=== PATIENT | male | born 1965 | race Hispanic/Latino ===

== ENCOUNTER → 2024-09-20 | Outpatient (CLI) | payer BC ==
--- NOTE | 2024-09-20 13:20 | NUR ---
MBSS COMPLETED (OUTPATIENT). Deep non-transient penetration before the swallow with thin liquids via straw sip with throat clear response/ transient penetration during the swallow with continuos sips of thin liquids. Recommend regular solids, thin liquids (NO STRAWS), and pills whole with liquids as tolerated. Compensatory strategies: 1. sit upright during oral intake 2. no straws DIAGNOSTIC FINDINGS: Pt presented with mild pharyngeal dysphagia characterized by decreased tongue base retraction; occasional decreased pharyngeal response trigger; decreased hyo-laryngeal elevation/excursion; evidenced by occasional premature spillage to valleculae with spillover to pyriform sinuses; residue on base of tongue, valleculae, pyriform sinuses and occasionally on posterior pharyngeal wall cleared with extra dry swallows; resulting in transient penetrations during the swallow with thin liquids via continuos sips; deep non-transient penetration before the swallow with thin liquids via straw sips with throat clear response. Pt also observed with throat clears throughout exam not indicating aspirations or penetrations. No aspirations observed. [employer] reviewed results and recommendations with patient and . PRODUCT TESTER [employer] educated patient on risks and consequences of aspiration. Speech therapy recommended to address mild pharyngeal dysphagia. All questions answered. Addendum: 09/20/[address] MATHEW CORNELIUS Amended: Links added.
--- NOTE | 2024-09-20 16:18 | HMCIMG ---
MODIFIED BARIUM SWALLOW W CINE INDICATION: DYSPHAGIA, OROPHANGEAL PHASE FINDINGS: Fluoroscopic assistance was provided to the speech pathologist while performing examination. For findings and dietary recommendations, refer to speech pathologist's report. IMPRESSION: Modified barium swallow as described.
== END | disposition home or self-care (01) ==
LOC: RAH 13:11
PROVIDERS: ATTEND Internal Medicine Gastroenterology
DX: R13.13 Dysphagia, pharyngeal phase (principal); R63.30 Feeding difficulties, unspecified; E66.01 Morbid (severe) obesity due to excess calories
CPT/HCPCS: 74230; 92611